=== PATIENT | male | born 1995 | race Caucasian/White ===

== ENCOUNTER → 2019-07-21 11:09 | Outpatient (CLI) | payer OTHER, SELFPAY ==
[2019-07-21 11:40] VITALS: BP 123/80; PULSE 77; RESP 14; TEMP 37; O2SAT 97; BMI 24.8
--- NOTE | 2019-07-21 12:16 | WMO.HTC_ITS ---
Problem List (1) Hemophilia A Status: Chronic Subjective Date of Service:: 07/21/19 Chief Complaint: F/U for Hemophilia A. 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 He is now on a study with Fitusiran monthly at [facility] since March 2019. Has not had any bleed since he started. Health History: Past Medical History (Last Updated 07/21/19 @ 11:38 by Yancy Watt) Displacement of central venous catheter (CVC) (Acute) Hemophilia A (Acute) Social History Social History: No changes Smoking Status Never smoker Allergies/Adverse Reactions: Allergy/AdvReac Type Severity Reaction Status Date / Time aspirin Allergy Bleeding Verified 07/21/19 11:58 Risk Factors Social History Social History: No changes Smoking Status Never smoker Tobacco Risk Data: Tobacco Risk Smoking Status Never smoker Type of tobacco: Smokeless tobacco usage: Never Items/Day: Year started: Years used: Counseled to quit/cut down: Reason for no counseling performed: Reason for no pharmacotherapy: Tobacco use comments: Passive smoke exposure: No Substance Risk Drug use: No Caffeine use [drinks/day]: 1 Alcohol use: Yes Type of alcohol: couple times a week - socially Drinks per day: Has patient felt the need to cut down: Has the patient been annoyed by complaints: Has the patient felt guilty about drinking: Has the patient needed an 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: Comments: Review of Systems Constitutional:: Denies: Fever, Sweats, Weight loss, Appetite change, Chills Cardiovascular:: Denies: Chest pain, Palpitations, Dyspnea on exertion, Orthopnea, PND, Shortness of breath Respiratory: Denies: Cough, Hemoptysis, Shortness of Breath, Wheezing Gastrointestinal:: Denies: Abdominal pain, Nausea, Vomiting, Diarrhea, Consti pation, Hematochezia Genitourinary: Denies: Dysuria, Hematuria, 15, Flank pain Musculoskeletal:: Denies: Back pain, Myalgia, Arthralgia Skin: Denies: Rash, Skin Changes, Wounds Neurological:: Denies: Headache, Dizziness, Visual changes, Tinnitus, Hearing loss Psychiatric: Denies: Anxiety, Depression, Homicidal Ideations, Suicidal Ideations Vital Signs Height 5 ft 9 in Weight: 76.249 kg Weight in Pounds 168.1 lbs Pulse Ox 97 Temperature 98.6 F Pulse Rate 77 Respiratory Rate 14 Blood Pressure 123/80 Blood Pressure Position Sitting - Physical Exam General: Alert, Oriented x3, No apparent distress HEENT: Atraumatic, PERRLA, EOMI, Normocephalic Oropharynx:: Dry mucosa Neck:: Supple, Trachea midline. Negative for: JVD, bilateral Cardiac:: Regular rate, Regular rhythm, Normal S1, Normal S2. Negative for: Murmur Lungs: Clear to auscultation, Excusion symmetrical. Negative for: Rhonchi, Wheezes Abdomen:: Bowel sounds x 4, Soft, Non-tender, Non-distended. Negative for: Hepatosplenomegaly Extremities:: Negative for: Cyanosis, Edema Neurological: Neuro grossly intact Skin:: Negative for: Lesions, Rash, Petechiae, Ecchymosis Psychiatric:: Appropriate affect, Euthymic Lymphatics:: Negative for: Cervical lymphadenopathy, Supraclavicular lymphadenopathy, Axillary lymphadenopathy Therapy ROM Screening - Subjective Subjective:: pt reports no concerns at this time. pt on Medical study at [facility]- pt states he has not had any bleeds since and almost no bleeds. - Objective Right shoulder flex:: 160 Left shoulder flex:: 160 Right shoulder extension:: 65 Left shoulder extension:: 65 Right elbox flex/ext:: 145/0 Left elbox flex/ext:: 145/0 Right elbow circumference:: 26cm Left elbow circumference:: 25.5cm Right forearm sup/pron:: WNL Left forearm sup/pron:: WNL Right knee flexion:: 125 Left knee flexion:: 125 Right knee circumference:: 37cm Left knee circumference:: 36cm Right ankle dorsiflexion:: 25 Left ankle dorsiflexion:: 25 Right ankle Plan-flex:: 45 Left ankle Plan-flex:: 45 Right ankle circumference:: NT boots on Left ankle circumference:: NT boots on Right hip flexion:: 90 Left hip flexion:: 95 Right hip extension:: 20 Left hip extension:: 20 - Assessment Assessment:: no concerns with ROM -. pts ROM is WNL Assessment and Plan Hemophilia A, clinically stable. Plan is to continue therapy with Fitusiran monthly. RTC 1 yr. Medications: Prescriptions This Visit Medication Instructions Recorded Antihemo.[id number],Full Length Peg 2,000 unit IV PRN PRN 07/21/19 [Adynovate] Primary Care Provider: No Primary Care Phys Referring Provider:
== END ==
PROVIDERS: Visit Provider Internal Medicine Medical Oncology
DX: D66 Hereditary factor VIII deficiency (principal)

== ENCOUNTER → 2023-10-20 | Outpatient (CLI) | payer OTHER, SELFPAY ==
[2023-10-20 12:25] LABS: Erythrocyte Sedimentation Rate 1 mm/hr (0-20)
[2023-10-20 12:28] LABS: Absolute Lymphocyte Count 1.38 X10^3/uL (0.83-4.51); Absolute Neutrophil Count 2.3 X10^3/uL (2.0-7.7); Basophil# 0.03 X10^3/uL; Basophil% 0.7 % (0-1); Eosinophil# 0.16 X10^3/uL; Eosinophils% 3.7 % (0-5); Hematocrit 44.9 % (40-54); Hemoglobin 15.5 g/dL (13.0-16.5); Lymphocyte # 1.38 X10^3/ul (0.83-4.51); Lymphocyte % 32.2 % (19-41); Mean Corp Hgb Conc 34.5 g/dL (32-36); Mean Corpuscular Hgb 31.5 pg (27.0-32.0); Mean Corpuscular Volume 91.3 fL (80-94); Mean Platelet Vol. 10.1 fl (6.2-12.0); Monocyte# 0.43 X10^3/uL; NRBC Flagged by Analyzer 0 % (0-5); Neutrophil # 2.28 X10^3/uL (2.7-7.7); Neutrophil % 53.2 % (47-70); Platelet Count 228 K/mm3 (150-450); RBC Distribution Width CV 11.7 % (11.6-14.6); RBC Distribution Width SD 38.8 fl (35.1-43.9); Red Blood Count 4.92 M/mm3 (4.6-6.2); White Blood Count 4.3 K/mm3 (4.4-11.0)
[2023-10-20 12:48] LABS: ALB/GLOB Ratio 1.5 RATIO (0.9-2.4); AST(SGOT) 16 U/L (15-37); Alanine Aminotransfer ALT/SGPT 27 U/L (16-61); Albumin, Serum 4.5 g/dL (3.2-5.0); Alkaline Phosphatase 48 U/L (45-117); Anion Gap 9 (5-15); BUN 16 mg/dL (7-18); BUN/Creat Ratio 14.5 RATIO (10-20); Calcium,Total 9.7 mg/dL (8.5-10.1); Chloride 102 mmol/L (98-107); EST Glomerular Filtration Rate 86 mL/min (>60); Est Glom Filt Rate - Afr Amer 104 mL/min (>60); Glucose 97 mg/dL (74-106); Potassium 3.9 mmol/L (3.5-5.1); Protein, Total 7.5 g/dL (6.4-8.2); Sodium Level 139 mmol/L (136-145); Thyroid Stim Hormone (TSH) 1.33 uIU/mL (0.358-3.74)
[2023-10-20 12:49] LABS: Vitamin B12 454 pg/mL (211-911); Vitamin D,25 Hydroxy 25.8 ng/mL
[2023-10-21 11:09] LABS: ANTINUCLEAR ANTIBODIES DIRECT Negative (Negative)
[2023-10-27 11:09] LABS: Testosterone, % Free 3.09 % (1.50-4.20); Testosterone, Free 16.84 ng/dL (5.00-21.00); Testosterone, Total 545 ng/dL (264-916)
== END | disposition home or self-care (01) ==
LOC: BIMLAB 09:00
PROVIDERS: Visit Provider Physician Assistant
DX: R53.83 Other fatigue (principal)
CPT/HCPCS: 36415; 80053; 82306; 82607; 84402; 84403; 84443; 85025; 85652; 86038; 86225; 86235

== ENCOUNTER 2024-12-19 15:35 | Outpatient (CLI) | payer BC, SELFPAY ==
[2024-12-19 16:21] LABS: Absolute Lymphocyte Count 2.17 X10^3/uL (0.83-4.51); Absolute Neutrophil Count 3.1 X10^3/uL (2.0-7.7); Basophil# 0.05 X10^3/uL; Basophil% 0.8 % (0-1); Eosinophil# 0.15 X10^3/uL; Eosinophils% 2.5 % (0-5); Hematocrit 42.9 % (40-54); Hemoglobin 14.9 g/dL (13.0-16.5); Lymphocyte # 2.17 X10^3/ul (0.83-4.51); Lymphocyte % 36.3 % (19-41); Mean Corp Hgb Conc 34.7 g/dL (32-36); Mean Corpuscular Hgb 30.8 pg (27.0-32.0); Mean Corpuscular Volume 88.8 fL (80-94); Mean Platelet Vol. 9.6 fl (6.2-12.0); Monocyte# 0.48 X10^3/uL; NRBC Flagged by Analyzer 0 % (0-5); Neutrophil % 52.1 % (47-70); Platelet Count 269 K/mm3 (150-450); RBC Distribution Width CV 11.7 % (11.6-14.6); RBC Distribution Width SD 37.1 fl (35.1-43.9); Red Blood Count 4.83 M/mm3 (4.6-6.2)
[2024-12-19 17:22] LABS: Hepatitis B Surface Antibody REAC
[2024-12-19 17:27] LABS: ALB/GLOB Ratio 1.8 RATIO (0.9-2.4); AST(SGOT) 15 U/L (<=37); Alanine Aminotransfer ALT/SGPT 17 U/L (<=46); Albumin, Serum 4.8 g/dL (3.5-5.0); Alkaline Phosphatase 59 U/L (40-129); Anion Gap 12 (5-15); BUN 14 mg/dL (4-19); BUN/Creat Ratio 14.1 RATIO (10-20); Calcium,Total 9.7 mg/dL (7.6-11.0); Carbon Dioxide 25.2 mmol/L (21.0-32.0); Chloride 101 mmol/L (98-108); Creatinine, Serum 0.98 mg/dL (0.70-1.20); EST Glomerular Filtration Rate 108 (>60); Globulin 2.7 g/dL (2.2-4.2); Glucose 88 mg/dL (70-99); Protein, Total 7.4 g/dL (5.9-8.4); Sodium Level 138 mmol/L (133-145); Total Bilirubin 0.43 mg/dL (0.00-1.30); Vitamin D,25 Hydroxy 25.8 ng/mL (30-100)
[2024-12-22 01:07] LABS: Factor VIII Activity 177 % (56-140); Hepatitis B Core Ab Total Negative (Negative); VWD Studies Interp Report Note (.); von Willebrand Factor (vWF) Ag 55 % (50-200); von Willebrand Factor Activity 67 % (50-200)
== END 2024-12-19 23:59 | disposition home or self-care (01) ==
LOC: LAB 15:39
DX: D66 Hereditary factor VIII deficiency (principal)
CPT/HCPCS: 36415; 80053; 82306; 85025; 85240; 85245; 85246; 86704; 86706

== ENCOUNTER → 2024-12-21 | Outpatient (CLI) | payer BC, SELFPAY ==
[2024-12-23 06:08] LABS: Factor VIII Activity 96 % (56-140)
== END | disposition home or self-care (01) ==
LOC: LAB 08:41
DX: D66 Hereditary factor VIII deficiency (principal)
CPT/HCPCS: 36415; 85240

== ENCOUNTER 2024-12-22 16:23 | Outpatient (CLI) | payer BC, SELFPAY ==
[2024-12-25 13:08] LABS: Factor VIII Activity 60 % (56-140)
== END 2024-12-22 23:59 | disposition home or self-care (01) ==
LOC: LAB 16:28
DX: D66 Hereditary factor VIII deficiency (principal)
CPT/HCPCS: 36415; 85240